=== PATIENT | male | born 2000 | race Caucasian/White ===

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

== ENCOUNTER 2020-02-24 23:05 | Emergency (ER) | payer BC ==
[~2020-02-24] VITALS: Ht 190.5 cm; Wt 131.8 kg
[~2020-02-24 23:05] MED LIST: ADDERALL20 MG PO
[2020-02-24 23:06] VITALS: TEMP 97.4
[2020-02-25 02:47] VITALS: BP 111/62; PULSE 78
== END 2020-02-25 02:47 | disposition home or self-care (01) ==
LOC: COL.ER 23:05
DX: F10.129 Alcohol abuse with intoxication, unspecified (principal); E66.9 Obesity, unspecified; F17.200 Nicotine dependence, unspecified, uncomplicated; Z68.36 Body mass index [BMI] 36.0-36.9, adult